=== PATIENT | male | born 1955 | race Caucasian/White ===

== ENCOUNTER → 2025-02-18 | Day surgery (SDC) | payer MEDICARE, OTHER ==
[~2025-02-18] MED LIST: DEXAMETHASONE SOD PHOS 10 MG/1 ML VIAL ONE; FENTANYL CITRATE/PF 100MCG/2 ML INJ ONE; LIDOCAINE HCL 2% LOCAL INJ 5 ML SDV VIAL INJ ONE; ONDANSETRON HCL INJ 2MG/ML 2ML 2 MG/ML VIAL ONE; PHENYLEPHRINE HCL 1% 10 MG/ML VIAL ONE; PROPOFOL IV EMULSION 10 MG/ML 20 ML VIAL ONE; ROCURONIUM BROMIDE 1 ML IV ONE; SEVOFLURANE INHAL SOLN 250 ML PEN BTL ONE; SUCCINYLCHOLINE CHLORIDE 20 MG/ML 10ML VIAL ONE
[2025-02-18] MEDS: LACTATED RINGER'S 1,000 ML ONE (08:22)
[2025-02-18 08:39] LABS: INR 0.98; PROTHROMBIN TIME 13.6 seconds (11.9-14.5)
[2025-02-18 08:40] LABS: PARTIAL THROMBOPLASTIN TIME 30.4 seconds (23.8-35.5)
[2025-02-18 10:55] VITALS: TEMP 97.7
[2025-02-18 12:05] VITALS: BP 158/88; PULSE 78; RESP 18; O2SAT 95
== END | disposition home or self-care (01) ==
LOC: OR 07:19
PROVIDERS: ATTEND Otolaryngology Otolaryngology/Facial Plastic Surgery
DX: K14.0 Glossitis (principal); L57.0 Actinic keratosis; R23.4 Changes in skin texture; B48.8 Other specified mycoses; E11.9 Type 2 diabetes mellitus without complications; F17.290 Nicotine dependence, other tobacco product, uncomplicated; Z88.0 Allergy status to penicillin; Z01.810 Encounter for preprocedural cardiovascular examination; Z01.818 Encounter for other preprocedural examination; Z86.73 Personal history of transient ischemic attack (TIA), and cerebral infarction without residual deficits
CPT/HCPCS: 31536; 31622; 36415; 43191; 71046; 85610; 85730; 88305; 88312; 93005; J0330; J1100; J2003; J2371; J2405; J2704; J3010; J7121; 88304